=== PATIENT | female | born 1945 | race Caucasian/White ===

== ENCOUNTER 2017-02-25 08:50 | Observation (INO) | payer MEDICARE, BC ==
[2017-02-22 14:02] VITALS: BMI 22.7
[~2017-02-25] VITALS: Ht 162.6 cm; Wt 62.0 kg
[2017-02-25] VITALS (18 sets, daily range): BP systolic 103–127; BP diastolic 59–75; PULSE 83–118; RESP 16–19; Ht 162.6 cm; Wt 62.0 kg
[~2017-02-25 08:50] MED LIST: BIOT25004 PO; EZET10TA3 PO; LEVO88TA3 PO; LOSA1TAB21 PO; RANI150T5 PO; ROSU20TA PO; SERT50TA6 PO
[2017-02-25] MEDS ORDERED: LACTATED RINGER'S 1,000 ML IV* ONE (10:00)
[2017-02-25] MEDS ORDERED: CEFAZOLIN 2 GM/50 ML (PMX) 50 ML IVPB ONE (10:00)
[2017-02-25] MEDS ORDERED: FENTAnyl 50 MCG/ML VIAL ONE ×2 (10:07→13:03)
[2017-02-25] MEDS ORDERED: LIDOCAINE 2% (SDV) 5 ML INJ ONE (10:07)
[2017-02-25] MEDS ORDERED: GLYCOPYRROLATE 1 MG INJ ONE (10:07)
[2017-02-25] MEDS ORDERED: PROPOFOL 20 ML ONE (10:07)
[2017-02-25] MEDS ORDERED: ROCURONIUM 50 MG INJ ONE (10:07)
[2017-02-25] MEDS ORDERED: NEOSTIGMINE 3 MG/3 ML SYRINGE ONE (10:07)
[2017-02-25] MEDS ORDERED: MIDAZOLAM 1 MG/ML 2 ML INJ ONE (10:08)
[2017-02-25] MEDS: D5W-0.45 NACL + KCL 20 MEQ 1,000 ML IV SCH ×3 (11:30→21:30)
[2017-02-25] MEDS ORDERED: ACETAMINOPHEN 325 MG TAB PO PRN (11:30)
[2017-02-25] MEDS ORDERED: CARISOPRODOL 350 MG TAB PO PRN (11:30)
[2017-02-25] MEDS ORDERED: CEPASTAT LOZENGE MT PRN (11:30)
[2017-02-25] MEDS ORDERED: AL HYDROX/MG HYDROX/SIMETH 30 ML CUP PO PRN (11:30)
[2017-02-25] MEDS ORDERED: NALOXONE (0.4 MG/ML) INJ IV PRN (11:30)
[2017-02-25] MEDS ORDERED: HYDROmorphONE 1 MG/ML SYG IV PRN (11:30)
[2017-02-25] MEDS ORDERED: BISACODYL 10 MG SUPP PR PRN (11:30)
[2017-02-25] MEDS: CEFAZOLIN 1 GM/50 ML (PMX) 50 ML IVPB SCH ×3 (11:30→20:43)
[2017-02-25] MEDS ORDERED: DIPHENHYDRAMINE 50 MG INJ IV PRN (11:30)
[2017-02-25] MEDS ORDERED: ZOLPIDEM 5 MG TAB PO PRN (11:30)
[2017-02-25] MEDS ORDERED: HYDROmorphONE 0.2 MG/ML PCA IV SCH (11:30)
[2017-02-25] MEDS ORDERED: HYDROCODONE/APAP (10/325) TAB PO PRN ×2 (11:30)
[2017-02-25] MEDS ORDERED: ONDANSETRON 4 MG INJ IV PRN (11:30)
--- NOTE | 2017-02-25 11:30 | HPN ---
Date/Time of Note Date/Time of Note DATE: 02/25/17 TIME: 11:30 Interval H&P Admission Note Pt. seen H&P reviewed: No system changes GALE PATEL PA-C February 25, 2017 11:30
[2017-02-25] MEDS ORDERED: BUPIVACAINE 0.25%/EPI (SDV) 30 ML INJ ONE (11:33)
[2017-02-25] MEDS ORDERED: GELATIN SIZE 100 SPONGE ONE (11:33)
[2017-02-25] MEDS ORDERED: SURGIFOAM POWDER 1 GM KIT ONE (11:33)
[2017-02-25] MEDS ORDERED: CA CHLORIDE 10% 10 ML SYRINGE ONE (11:34)
[2017-02-25] MEDS ORDERED: POLYMYXIN/BACITRACIN 1L IRRIG ONE (11:34)
[2017-02-25] MEDS: THROMBIN 5000 UNIT VIAL ONE ×2 (13:00→13:01)
[2017-02-25] MEDS ORDERED: BUPIVACAINE 0.25% (MPF) 10 ML 10 ML VIAL ONE (13:04)
--- NOTE | 2017-02-25 15:32 | RADRPT ---
PROCEDURE: XR Lumbar Spine one view. CLINICAL INDICATION: Low back pain. Intraoperative. TECHNIQUE: Prone portable cross-table lateral. COMPARISON: 07/03/2016. FINDINGS: For the purposes of this report, the last apparent true disc level is considered to be L5-S1. Based on this, the posterior needle markers are present at the L4 spinous process level and L5-S1 level. IMPRESSION: 1. Intraoperative imaging as described above. RPTAT: QQ .Ramirez Luna MD, MD Date Time Electronically viewed and signed by .Ramirez Luna MD, MD on 02/25/2017 15:32 .R/
--- NOTE | 2017-02-25 15:33 | RADRPT ---
PROCEDURE: XR Lumbar Spine one view. CLINICAL INDICATION: Low back pain. Intraoperative. TECHNIQUE: Prone portable cross-table lateral. COMPARISON: Prior study done earlier the same day. FINDINGS: For the purposes of this report, the last apparent true disc level is considered to be L5-S1. Based on this, the posterior surgical instrument is present overlying the L4-5 level. IMPRESSION: 1. Intraoperative imaging as described above. RPTAT: QQ .Ramirez Luna MD, MD Date Time Electronically viewed and signed by .Ramirez Luna MD, on 02/25/2017 15:32 .R/
--- NOTE | 2017-02-25 18:50 | OPR ---
DATE OF OPERATION: 02/25/2017 PREOPERATIVE DIAGNOSES: 1. Left L4-L5 stenosis. 2. Radiculopathy. 3. History of right L4-5 decompression. POSTOPERATIVE DIAGNOSES: 1. Left L4-L5 stenosis. 2. Radiculopathy. 3. History of right L4-5 decompression. OPERATION PERFORMED: 1. Left L4-L5 decompression with decompression of left L4 and L5 nerve roots. 2. Lateral localizing film x2. 3. Intraoperative neuromonitoring (1 hour). 4. Use of operative microscope. 5. Epidural injection via catheter. PRIMARY SURGEON: Epi Calvert MD VINYL CUTTER: TOYA Bowden NEED FOR HEAD GRINDER: During this spinal surgical procedure, my assistant maintenance manager was used to retract and protect the spinal nerves and dural sac. My assistant maintenance manager also employed the suction catheters to evacuate blood from the surgical field to improve visualization of the neural structures. The assistant maintenance manager was medically necessary to facilitate the completion of the surgery in a safe and expeditious manner. [facility] regulations, as well as hospital bylaws, preclude the use of non-licensed health care personnel, such as operating room technicians, to perform these functions. FINDINGS: Neuromonitoring signals on the left showed L5 down 50%, amplitude of L5 on the right was down 20%. Scar tissue was identified from the previous surgeries. The patient had significantly thickened ligamentum flavum with a possible central cyst. ESTIMATED BLOOD LOSS: Less than 30 mL. DRAINS: None. SPECIMENS: None. COMPLICATIONS OF PROCEDURES: None. ANESTHESIOLOGIST: Dr. Rajput TYPE OF ANESTHESIA: General. INDICATIONS FOR PROCEDURE: This 71-year-old female who had previously undergone right-sided decompression and then presented with left-sided radicular complaints. Stenosis was identified. She had failed nonoperative measures, therefore, I recommend proceeding with above-mentioned surgery. She does have a listhesis at this level and understands that, in the future, a fusion might be indicated. DESCRIPTION OF PROCEDURE IN DETAIL: The patient was identified in the preoperative holding area, given Ancef antibiotic, taken to the operating room, where she was successfully placed under general anesthesia. Neuromonitoring leads were placed. Sequential compressive devices were applied. Neuromonitoring was utilized during the procedure for 1 hour to include SSEP, MEP, and EMG. This was performed by [place]. Start time was 12:30 p.m., closure time was 1:30 p.m. The patient was placed on the operating table in prone position over a Sebastian frame. All bony prominences were padded. Back was then prepped and draped in usual sterile fashion. Spinal needles were placed. Lateral films obtained to confirm the correct levels. I injected the skin, subcutaneous tissue, and paraspinal musculature with 0.25% Marcaine and epinephrine. I then made an incision over the L4-L5 level utilizing the majority of the patient's previous incision. Incision was taken down to dorsal fascia, which was incised with Bovie cautery. Here, scar tissue was identified from the previous surgery. I was able to subperiosteally dissect the left L4 lamina. Repeat lateral film was obtained to confirm the correct levels. Next, microscope was brought in and a left-sided decompression was performed at the L4 -5 level for stenosis. I decompressed the canal on the left L4 and L5 nerve roots. The patient had a markedly thickened ligamentum flavum, which was removed. Once this was done, all nerve signals returned to normal. I examined the disk. There was no evidence of a disk herniation. Hemostasis was achieved with bipolar cautery and Surgifoam. The wound was then irrigated. Valsalva maneuver was performed and there was no leak of CSF. Epidural catheter was passed through which I injected 100 mcg of fentanyl and the catheter was pulled. Anesthesiologist kishan peripheral blood, which was spun using the [employer] device. I took the platelet-poor plasma mixed with thrombin and injected this over the dura for hemostatic purposes. Next, the retractors were removed. I closed the deep fascia with #1 Vicryl stitch. I closed subcutaneous tissue with 2-0 Vicryl stitch. Microscope was taken off the field. A 4-0 Monocryl closure was then performed. Dermabond was then applied. The patient was then awakened from anesthesia and taken to recovery room in stable condition. Lap, sponge, instrument counts were correct x2. There were no apparent complications during the procedure. The patient will be admitted to the orthopedic shea for routine postoperative care to include pain control, neurovascular checks, antibiotics, and physical therapy. Dictated By: EPI DALEY/LEIA Conf#: [id number] DID#: [id number] SIVAN
--- NOTE | 2017-02-25 19:09 | CONS ---
DATE OF ADMISSION: 02/25/2017 DATE OF CONSULTATION: TYPE OF CONSULTATION: Medical. Thank Dr. Calvert for asking us to participate in the medical management of this patient. REASON FOR CONSULTATION: To manage the patient's hypothyroidism, hyperlipidemia, hypertension. HISTORY OF PRESENT ILLNESS: This 71-year-old female is now postop a lumbar spine surgery by Dr. Charles. The patient was having low back pain radiating down her left leg. She was diagnosed as hav ing a herniated disk at the L4-L5 level on the left. She had surgery today with a decompressive villagran inectomy. The patient is now awake and alert. She says that the pain is minimal and controlled wit h current medication. The patient previously had a right L4-L5 decompression and did well with the right leg pain, resolving. PAST MEDICAL HISTORY: Hypertension, hypothyroidism, Meniere's disease, hyperlipidemia, gastroesopha geal reflux disease. CURRENT MEDICATIONS: Include the followin. Levothyroxine 88 mcg a day. 2. Rosuvastatin 10 mg a day. 3. Losartan HCT 100/12.5 mg a day. 4. Sertraline 50 mg at bedtime. 5. Ranitidine 150 mg at bedtime. 6. Zetia 5 mg a day. PAST SURGICAL HISTORY: Tonsillectomy, rhinoplasty, right lobe thyroidectomy, tummy tuck, right lumb ar spine surgery, double hernia repair, breast implants, right foot surgery with bunionectomy, TMJ s urgery, total hysterectomy, nasal surgery, bilateral knee arthroscopy for meniscal surgery, removal of skin cancer from left collar bone. SOCIAL HISTORY: The patient is retired and , a nonsmoker. She drinks alcohol socially. ALLERGIES: DEMEROL AND SHELLFISH. PHYSICAL EXAMINATION: GENERAL: At this time reveals a well-developed female in no apparent distress. VITAL SIGNS: Temperature 97.9, pulse of 111, respirations 18, blood pressure 111/69, O2 saturation 98% on 2 liter nasal cannula. HEENT: Head normocephalic. Eyes: Extraocular muscles intact. NOSE AND MOUTH: Normal. NECK: Supple. No neck vein distention. NEUROLOGIC: She does have a well-healed scar over her thyroid lower neck from previous surgery. LUNGS: Clear to auscultation. HEART: Regular rhythm. No murmurs, gallops or rubs. ABDOMEN: Soft, nontender. EXTREMITIES: No peripheral edema. IMPRESSION: The patient is doing well after surgery today. She has very little back pain and no le g pain. Her blood pressure is under good control. She did take her antihypertensive medication wit h a sip of water this morning. PLAN: 1. Resume some routine medications. 2. Check labs in the morning. 3. I will manage the patient's hypertension, hypothyroidism, hyperlipidemia. 4. Postop lumbar spine surgery protocol. 5. I will follow the patient along with you. Dictated By: ARTURO RUDD MD, ND/LEIA Conf#: [id number] DID#: [id number]
[2017-02-25] MEDS: SERTRALINE 50 MG TAB PO SCH (20:47)
[2017-02-25] MEDS ORDERED: RANITIDINE 150 MG TAB PO SCH (21:00)
[2017-02-26 00:09] VITALS: BP 93/57; RESP 16
[2017-02-26] MEDS: CEFAZOLIN 1 GM/50 ML (PMX) 50 ML IVPB SCH ×2 (03:30→04:09)
[2017-02-26 05:37] LABS: ADD SCAN DIFF NO
[2017-02-26 05:43] LABS: BASOPHILS % 0.1 % (0.0-2.0); HEMATOCRIT 38.7 % (37.0-47.0); HEMOGLOBIN 12.6 g/dl (12.0-16.0); LYMPHOCYTES # 1.3 10^3/ul (0.8-2.9); LYMPHOCYTES % 9.6 % (15.0-51.0); MEAN CORPUSCULAR HEMOGLOBIN 28.1 pg (29.0-33.0); MEAN CORPUSCULAR HGB CONC 32.6 g/dl (32.0-37.0); MEAN CORPUSCULAR VOLUME 86.4 fl (82.0-101.0); MEAN PLATELET VOLUME 9.1 fl (7.4-10.4); NEUTROPHIL # 11.3 10^3/ul (1.6-7.5); NEUTROPHILS % 82.9 % (39.0-77.0); PLATELET COUNT 281 10^3/UL (140-415); RED BLOOD COUNT 4.48 10^6/ul (4.20-5.40); RED CELL DISTRIBUTION WIDTH 14.6 % (11.5-14.5); WHITE BLOOD COUNT 13.7 10^3/ul (4.8-10.8)
[2017-02-26 06:14] LABS: CALCIUM 9.4 mg/dl (8.4-10.2); CREATININE 0.63 mg/dl (0.44-1.00); MAGNESIUM 1.7 mg/dl (1.7-2.5); POTASSIUM 3.4 mmol/L (3.5-5.1)
[2017-02-26] MEDS ORDERED: LEVOTHYROXINE 88 MCG TAB PO SCH (07:00)
[2017-02-26] MEDS: SERTRALINE 50 MG TAB PO SCH (08:32)
[2017-02-26 08:33] VITALS: BP 102/59; PULSE 101
--- NOTE | 2017-02-26 08:33 | CONS ---
Date/Time of Note Date/Time of Note DATE: 02/26/17 TIME: 08:31 Assessment/Plan Assessment/Plan Chief Complaint/Hosp Course 1. She is 1 day post op a lumbar spine surgery . She is doing well . 2. continue current medication and PT . Problems: Consultation Date/Type/Reason Admit Date/Time February 25, 2017 at 08:50 Initial Consult Date 24 HR Interval Summary Free Text/Dictation She is 1 day post op a lumbar spine surgery . No complaints Constitutional: improved, no complaints Exam/Review of Systems Vital Signs Vitals Vital Signs Date Time Temp Pulse Resp B/P Pulse Ox O2 Delivery O2 Flow Rate FiO2 02/26/17 00:09 98.7 101 16 93/57 97 02/25/17 18:45 Nasal Cannula 2.0 Intake and Output 02/25/17 02/25/17 02/26/17 15:00 23:00 07:00 Intake Total 2230 ml 470 ml 550 ml Output Total 10 ml Balance 2220 ml 470 ml 550 ml Exam Constitutional: alert, oriented, well developed Psych: nl mood/affect, no complaints Respiratory: clear to auscultation, normal air movement Cardiovascular: regular rate and rhythm Gastrointestinal: soft Musculoskeletal: nl extremities to inspection Results Result Diagram: 02/26/17 0503 02/26/17 0503 Results 24 hrs Laboratory Tests Test 02/26/17 05:03 White Blood Count 13.7 H Red Blood Count 4.48 Hemoglobin 12.6 Hematocrit 38.7 Mean Corpuscular Volume 86.4 Mean Corpuscular Hemoglobin 28.1 L Mean Corpuscular Hemoglobin Concent 32.6 Red Cell Distribution Width 14.6 H Platelet Count 281 Mean Platelet Volume 9.1 Neutrophils % 82.9 H Lymphocytes % 9.6 L Monocytes % 7.0 Eosinophils % 0.0 Basophils % 0.1 Nucleated Red Blood Cells % 0.0 Neutrophils # 11.3 H Lymphocytes # 1.3 Monocytes # 1.0 H Eosinophils # 0.0 Basophils # 0.0 Nucleated Red Blood Cells # 0.0 Sodium Level 138 Potassium Level 3.4 L Chloride Level 102 Carbon Dioxide Level 29 Anion Gap 10 Blood Urea Nitrogen 7 Creatinine 0.63 Glucose Level 136 Calcium Level 9.4 Magnesium Level 1.7 Medications Medications Current Medications Acetaminophen/ Hydrocodone Bitart (Hammond (10/325)) 1 tab Q4H PRN PO PAIN LEVEL 1-5; Start 02/25/17 at 11:30 Acetaminophen/ Hydrocodone Bitart (Hammond (10)) 2 tab Q4H PRN PO PAIN LEVEL 6-10; Start 02/25/17 at 11:30 Hydromorphone HCl (Dilaudid) 0.2 mg Q1H PRN IV BREAKTHROUGH PAIN Last administered on 02/25/17 14:09; Admin Dose 0.2 MG; Start 02/25/17 at 11:30 Ondansetron HCl (Zofran Inj) 4 mg Q6H PRN IV NAUSEA AND/OR VOMITING; Start 02/25 at 11:30 Bisacodyl (Dulcolax Supp) 10 mg DAILY PRN [place] CONSTIPATION; Start 02/25/17 at 11: 30 Docusate Sodium (Colace) 100 mg BID PO ; Start 02/26/17 at 09:00 Al Hydrox/Mg Hydrox/Simethicone (Mag-Al Plus) 15 ml Q6H PRN PO CONSTIPATION/ DYSPEPSIA; Start 02/25/17 at 11:30 Acetaminophen (Tylenol Tab) 650 mg Q4H PRN PO GRISSOM OR TEMP GREATER THAN 101.3F; Start 02/25/17 at 11:30 Carisoprodol (Soma) 350 mg TID PRN PO MUSCLE SPASMS; Start 02/25/17 at 11:30 Phenol (Cepastat Lozenge) 1 lozenge PRN PRN MT SORE THROAT Last administered on 02/25/17 15:12; Admin Dose 1 LOZENGE; Start 02/25/17 at 11:30 Diphenhydramine HCl (Benadryl) 25 mg Q6H PRN IV ITCHING; Start 02/25/17 at 11:30 Naloxone HCl (Narcan) 0.2 mg Q2M PRN IV RR 8 BREATHS/MIN OR LESS; Start at 11:30 Hydromorphone HCl (Dilaudid [employer]) [employer] to be started in PACU Q4PCA IV Last administered on 02/25/17 14:01; Admin Dose 6 MG; Start 02/25/17 at 11:30 Miscellaneous Information 1. Hold [employer] at 1,000... [employer] IV ; Start 02/25/17 at 11: 30 Ranitidine HCl (Zantac) 150 mg HS PO Last administered on 02/25/17 20:43; Admin Dose 150 MG; Start 02/25/17 at 21:00 Sertraline HCl (Zoloft) 50 mg DAILY PO Last administered on 02/25/17 20:47; Admin Dose 50 MG; Start 02/25/17 at 18:30 Losartan Potassium 100 mg 100 mg DAILY PO ; Start 02/26/17 at 09:00 Cefazolin Sodium (Ancef 1 Gm/50 ml (Pmx)) 50 ml @ 100 mls/hr ONCE IVPB ; Start 02/26/17 at 12:00; Stop 02/26/17 at 12:29 ARTURO RUDD MD February 26, 2017 08:33
[2017-02-26 08:45] VITALS: BP 108/57; RESP 18
[2017-02-26] MEDS ORDERED: DOCUSATE SODIUM 100 MG CAP PO SCH (09:00)
[2017-02-26] MEDS ORDERED: LOSARTAN 50 MG TAB PO SCH (09:00)
[2017-02-26] MEDS ORDERED: POTASSIUM CHLORIDE (SR) 20 MEQ TAB PO STA (09:36)
[2017-02-26] MEDS ORDERED: CEFAZOLIN 1 GM/50 ML (PMX) 50 ML IVPB SCH (12:00)
--- NOTE | 2017-02-26 13:15 | DS ---
DATE OF ADMISSION: 02/25/2017 DATE OF DISCHARGE: 02/26/2017 ADMITTING DIAGNOSIS: Spinal stenosis. DISCHARGE DIAGNOSIS: Spinal stenosis. PROCEDURE: The patient was taken to the operating room on 02/25/2017 and underwent lumbar decompres shantanu. HOSPITAL COURSE: The patient was admitted to the orthopedic shea after undergoing the above procedu re. Her postoperative course was uncomplicated. By postoperative day 1, she was deemed stable for discharge with followup arranged with the undersigned. Dictated By: THERESE DALEY/LEIA Conf#: [id number] DID#: [id number]
== END 2017-02-26 12:54 | disposition home or self-care (01) ==
LOC: REC 08:50 → INTOOBSV 08:50 → MS1 14:40
PROVIDERS: ADMIT Specialist; ATTEND Specialist
DX: M48.06 Spinal stenosis, lumbar region (principal); M54.16 Radiculopathy, lumbar region; J44.9 Chronic obstructive pulmonary disease, unspecified; I10 Essential (primary) hypertension; E03.9 Hypothyroidism, unspecified
CPT/HCPCS: 63030; 72020; 80048; 83735; 85025; 86999; 96361; 96365; 96376; 97163; G0378; J0690; J1170; J2250; J2710; J3010; J3480; J7120; 99217